=== PATIENT | female | born 1945 | race Caucasian/White ===

== ENCOUNTER 2021-10-09 14:55 | Emergency (ER) | payer MEDICARE, OTHER ==
[~2021-10-09] VITALS: Ht 160 cm; Wt 175.0 kg
[2021-10-09] MEDS ORDERED: HYDROcodone/APAP 5/325MG 1 TAB TABLET PO ONE (15:15)
--- NOTE | 2021-10-09 15:18 | PHYS DOC ---
General Adult EDM: Chief Complaint: KNEE INJURY HPI: HPI: Patient is a 76-year-old female who presents to the emergency department for right knee pain. Patient is reporting anterior posterior knee pain that started today. Per son, patient was seen at [facility] and had an ultrasound last week because she was having symptoms consistent with intermittent claudication and did not have a DVT. Patient was walking up the stairs today and felt a pop in her knee. She has been unable to ambulate since. Patient has been applying ice. Patient denies decreased sensation but reports limited flexion. Review of Systems: Review of Systems: Musculoskeletal: See HPI Integument: See HPI Neurologic: See HPI Heart Score: C/O Chest Pain: N/A Risk Factors: Risk Factors: DM, Current or recent (<one month) smoker, HTN, HLP, family history of CAD, obesity. Risk Scores: Score 0 - 3: 2.5% MACE over next 6 weeks - Discharge Home Score 4 - 6: 20.3% MACE over next 6 weeks - Admit for Clinical Observation Score 7 - 10: 72.7% MACE over next 6 weeks - Early Invasive Strategies Current Medications: Current Medications Medications (Trade) Dose Ordered Sig/Angel Start Time Stop Time Status Last Admin Dose Admin Acetaminophen/ Hydrocodone Bitart (Lortab 5/325) 1 tab 1X ONCE 10/09/21 15:15 10/09/21 15:16 UNV Physical Exam: PE: Constitutional: Well developed, well nourished, no acute distress, non-toxic appearance. [] HENT: Normocephalic, atraumatic, bilateral external ears normal, oropharynx moist, no oral exudates, nose normal. [] Eyes: PERRL, EOMI, conjunctiva normal, no discharge. [] Neck: Normal range of motion, no stridor Cardiovascular: Normal peripheral perfusion Lungs & Thorax: Normal work of breathing, no tachypnea Abdomen: Soft and flat Skin: Warm, dry, no erythema, no rash. [] Back: Normal range of motion Extremities: No tenderness, no cyanosis, no clubbing, ROM intact, no edema. Right knee: Mild swelling noted to anterior aspect of right knee, limited flexion of right knee full extension of right knee, equal strength bilateral lower extremities, no obvious wounds or obvious deformity, neuro intact, no joint laxiety, no crepitis. Neurologic: Alert and oriented X 3, normal motor function, normal sensory function, no focal deficits noted. [] Psychologic: Affect normal, judgement normal, mood normal. [] EKG: EKG: [] Radiology/Procedures: Radiology/Procedures: []PROCEDURE: KNEE RIGHT 3V XR KNEE 3 VIEWS_RT History: [place] pop in knee. Comparison: None. Technique: 3 views of the left knee. Findings: Osseous mineralization is normal. No acute fracture or dislocaton. Tricompartment minimal degenerative changes with medial and patellofemoral compartment narrowing and tricompartmental osteophytes. Trace suprapatellar fluid. Question medial knee edema in the subcutaneous fat. Impression: 1. Degenerative changes of the right knee without acute osseous abnormality. Electronically signed by: Luis Felipe Walden MD (10/09/2021 3:58 PM) [facility] DICTATED and SIGNED BY: LUIS FELIPE WALDEN MD DATE: 10/09/21 [id number] 0 Course & Med Decision Making: Course & Med Decision Making Pertinent Labs and Imaging studies reviewed. (See chart for details) Patient presents to the emergency department for right knee pain after hearing a pop while walking up the stairs today. Patient does have a history of chronic right leg pain and has had a negative ultrasound was in the week to rule out DVT. Patient does not have any redness, warmth, swelling to her right lower calf. Patient does have mild swelling and pain with palpation to anterior and posterior aspect of right knee. X-ray performed of right knee that showed degenerative changes but no acute fractures. Patient's knee placed in Seth wrap. Patient reports that she has a walker at home which she can use. Patient will be discharged home with pain medication. Patient educated on the rice protocol. Patient given referral for orthopedic doctor. I discussed with patient all findings and diagnostic testing as well as the need to follow-up with PCP for further evaluation and treatment or return to the ER if any new or worsening symptoms. Strict return precautions were also discussed at length. Patient voiced understanding and agreement with the plan. Patient is hemodynamically stable at the time of disposition. Dragon Disclaimer: Javi Disclaimer: This electronic medical record was generated, in whole or in part, using a voice recognition dictation system. Departure Departure Impression: Primary Impression: Knee pain Qualified Codes: M25.561 - Pain in right knee Disposition: 01 HOME / SELF CARE / HOMELESS Condition: GOOD Referrals: LORAINE MUSE MD Patient Instructions: RICE - Routine Care for Injuries Additional Instructions: You were seen in the emergency department today for right knee pain. An x-ray was performed that showed no acute findings although degenerative changes were seen. Your knee was placed in an Seth wrap. Your musculoskeletal problem that will likely improve over time. Your symptoms may be improved by something called the rice protocol. This is rest, ice, compression, elevation. Sometimes gentle stretching can provide relief, but be careful to injury. It is important to perform gentle range of motion exercises to prevent stiff joints and chronic pain. Use ice packs over the affected areas to help decrease your pain. For the first 24 hours you can apply ice 20 minutes on 20 minutes off for 4 times per day. Sometimes compression such as the use of an Seth wrap can help with the swelling. You may also elevate the affected area to help with the swelling. Please use your walker as needed. You can take ibuprofen or naproxen for mild pain. You are being discharged home with Lortab which is a combination tablet of hydrocodone and Tylenol. This medication may cause sedation so do not take need to be alert, driving a vehicle or with alcohol. If your pain continues, you may need to follow-up with an orthopedic doctor and have outpatient MRI of your right knee. Please see the attached information for orthopedic doctors. Please return to the emergency department if you develop worsening of your pain, decreased sensation to your extremity, inability to bear weight or ambulate. Scripts Hydrocodone Bit/Acetaminophen (HYDROCODONE-APAP 5-325 ) 1 Tab Tablet 1 TAB PO PRN Q6HRS PRN for PAIN for 3 Days, #12 TAB 0 Refills Prov: KRISTI BRISCOE CONTINUOUS DRYOUT OPERATOR 10/09/21 KRISTI BRISCOE APRN Oct 09, 2021 15:18
--- NOTE | 2021-10-09 16:00 | RAD ---
XR KNEE 3 VIEWS_RT History: [place] pop in knee. Comparison: None. Technique: 3 views of the left knee. Findings: Osseous mineralization is normal. No acute fracture or dislocaton. Tricompartment minimal degenerativ e changes with medial and patellofemoral compartment narrowing and tricompartmental osteophytes. Trac e suprapatellar fluid. Question medial knee edema in the subcutaneous fat. Impression: 1. Degenerative changes of the right knee without acute osseous abnormality. Electronically signed by: Luis Felipe Walden MD (10/09/2021 3:58 PM) [facility]
[2021-10-09] MEDS ORDERED: HYDR-2761 PO ×2 (16:13→19:52)
[2021-10-09 16:25] VITALS: BP 127/92
== END 2021-10-09 16:30 | disposition home or self-care (01) ==
LOC: ER 14:55
DX: M25.561 Pain in right knee (principal); X50.9XXA Other and unspecified overexertion or strenuous movements or postures, initial encounter; Y93.89 Activity, other specified; Y92.89 Other specified places as the place of occurrence of the external cause; Y99.8 Other external cause status
CPT/HCPCS: 73562; 99283

== ENCOUNTER → 2021-12-03 | Outpatient (CLI) | payer MEDICARE, OTHER ==
[~2021-12-03] MED LIST: HYDR-2761 PO
--- NOTE | 2021-12-03 16:55 | KCIC ---
EXAM: MRI right KNEE DATE: 12/03/2021 1:15 PM CLINICAL INDICATION: Reason: RIGHT KNEE PAIN / Spl. Instructions: Pt denies knowing she is moving in any way. Immobilized as much as possible / History: Medial right knee pain, acute. NKI. Known arthrit is. COMPARISON: None. TECHNIQUE: Multiplanar, multisequence MRI of the right knee was performed without contrast. FINDINGS: The ACL and PCL are intact. Mild increased signal about the MCL may be reactive. The MCL, fibular col lateral ligament, biceps femoris and IT band are intact. Popliteus is normal in signal and morphology , intact. Extensor mechanism is intact accounting for motion artifact. Neutral patellar tracking. Sma ll knee joint effusion. Small Blackwell's cyst with edema tracking inferiorly likely recent partial ruptu re. Medial meniscus: Partial-thickness radial tear posterior horn-root medial meniscus. Mild extrusion of the body segment measuring 7 mm. Lateral meniscus: Intact. Regions of full-thickness defect including in the patella as well as the central weightbearing surfac e of the medial femoral condyle and lateral femoral condyle and lateral tibial plateau. Moderate subc hondral edema lateral tibial plateau. No fracture or osteonecrosis. Cystic changes seen within the pr oximal fibula and tibia centered at the proximal tibiofibular joint. IMPRESSION: 1. Multifocal degenerative changes greatest at the lateral compartment. There is also degenerative c hange at the proximal tibiofibular joint with associated cystic change. 2. Partial-thickness radial tear posterior horn-root medial meniscus with extrusion of the body segm ent. 3. Small Blackwell's cyst with edema tracking caudally suggesting recent partial rupture 4. Small knee joint effusion. Electronically signed by: Kaleb King MD (12/03/2021 4:52 PM) [id number]
== END ==
LOC: KCIC MRI 12:40
PROVIDERS: ATTEND Orthopaedic Surgery Sports Medicine
DX: S83.241A Other tear of medial meniscus, current injury, right knee, initial encounter (principal); M25.461 Effusion, right knee; M17.11 Unilateral primary osteoarthritis, right knee; M71.21 Synovial cyst of popliteal space [Baker], right knee; X58.XXXA Exposure to other specified factors, initial encounter; Y93.89 Activity, other specified; Y92.89 Other specified places as the place of occurrence of the external cause; Y99.8 Other external cause status
CPT/HCPCS: 73721